=== PATIENT | female | born 1995 | race American Indian/Alaskan Native ===

== ENCOUNTER 2016-12-12 18:30 | Emergency (ER) | payer SELFPAY ==
[2016-12-13] MEDS ORDERED: BICILLIN L-A IM ONE ×2 (03:14→03:28)
[2016-12-13] MEDS ORDERED: TORADOL IM ONE (03:14)
--- NOTE | 2016-12-13 03:17 | Emergency Department Report ---
ED ENT HPI - General Chief complaint: Earache Stated complaint: EARACHE/SORE THROAT/NO EATING Time Seen by Provider: 12/13/16 03:04 Source: patient Mode of arrival: Ambulatory Limitations: No Limitations - History of Present Illness Initial comments: 21-year-old female past medical history none presents with complaint of 4 days of sore throat. Patient is awake alert and oriented 3 does not appear to be in acute distress no audible wheezing or stridor no trismus noted drooling. Patient states she is able to tolerate oral fluids without significant difficulty but has trouble swallowing solids due to throat pain. Patient states she recently had sick contact at home. Patient states she has body aches denies any cough denies any chest pain no palpitations no abdominal pain mild nausea no vomiting. complaint: sore throat Onset/Timin -: days(s) Location: throat Severity: moderate Severity scale (0 -10): 6 Quality: burning Consistency: constant Improves with: none Worsens with: swallowing - Related Data Previous Rx's Medication Instructions Recorded Last Taken Type Benzocaine/Menthol [Cepacol Sore 1 each MM Q4H PRN #18 lozenge 12/13/16 Unknown Rx Throat Lozenge] Ibuprofen [Motrin] 600 mg PO Q8H PRN #30 tablet 12/13/16 Unknown Rx Allergies Allergy/AdvReac Type Severity Reaction Status Date / Time No Known Allergies Allergy Verified 12/12/16 19:40 ED Dental HPI - General Chief complaint: Earache Stated complaint: EARACHE/SORE THROAT/NO EATING Time Seen by Provider: 12/13/16 03:04 Source: patient Mode of arrival: Ambulatory Limitations: No Limitations - Related Data Previous Rx's Medication Instructions Recorded Last Taken Type Benzocaine/Menthol [Cepacol Sore 1 each MM Q4H PRN #18 lozenge 12/13/16 Unknown Rx Throat Lozenge] Ibuprofen [Motrin] 600 mg PO Q8H PRN #30 tablet 12/13/16 Unknown Rx Allergies Allergy/AdvReac Type Severity Reaction Status Date / Time No Known Allergies Allergy Verified 12/12/16 19:40 ED Review of Systems ROS: Stated complaint: EARACHE/SORE THROAT/NO EATING Other details as noted in HPI Constitutional: fever, malaise. denies: chills Eyes: denies: eye pain, eye discharge, vision change ENT: throat pain. denies: ear pain Respiratory: denies: cough, shortness of breath, wheezing Cardiovascular: denies: chest pain, palpitations Endocrine: no symptoms reported Gastrointestinal: denies: abdominal pain, nausea, diarrhea Genitourinary: denies: urgency, dysuria, discharge Musculoskeletal: denies: back pain, joint swelling, arthralgia Skin: denies: rash, lesions Neurological: denies: headache, weakness, paresthesias Psychiatric: denies: anxiety, depression Hematological/Lymphatic: denies: easy bleeding, easy bruising ED Past Medical Hx - Past Medical History Previous Medical History?: Yes Additional medical history: Pre-Eclampsia - Surgical History Past Surgical History?: No - Social History Smoking Status: Never Smoker Substance Use Type: None - Medications Home Medications: Home Medications Medication Instructions Recorded Confirmed Last Taken Type Benzocaine/Menthol [Cepacol Sore 1 each MM Q4H PRN #18 lozenge 12/13/16 Unknown Rx Throat Lozenge] Ibuprofen [Motrin] 600 mg PO Q8H PRN #30 tablet 12/13/16 Unknown Rx ED Physical Exam - General Limitations: No Limitations General appearance: alert, in no apparent distress - Head Head exam: Present: atraumatic, normocephalic - Eye Eye exam: Present: normal appearance, PERRL, EOMI - ENT ENT exam: Present: mucous membranes moist - Expanded ENT Exam Expanded Ear exam: Present: normal external inspection Teeth exam: Present: dental caries Throat exam: Positive: tonsillar erythema, tonsillar exudate - Neck Neck exam: Present: normal inspection, full ROM - Expanded Neck Exam Expanded Neck exam: Present: other (anterior cervical adenopathy) - Respiratory Respiratory exam: Present: normal lung sounds bilaterally. Absent: respiratory distress - Cardiovascular Cardiovascular Exam: Present: regular rate, normal rhythm. Absent: systolic murmur, diastolic murmur, rubs, gallop - GI/Abdominal GI/Abdominal exam: Present: soft, normal bowel sounds - Extremities Exam Extremities exam: Present: normal inspection - Back Exam Back exam: Present: normal inspection - Neurological Exam Neurological exam: Present: alert, oriented X3 - Psychiatric Psychiatric exam: Present: normal affect, normal mood - Skin Skin exam: Present: warm, dry, intact, normal color. Absent: rash ED Course Vital Signs 12/12/16 12/13/16 19:05 00:27 Temperature 99.0 F Pulse Rate 99 H 102 H Respiratory 18 18 Rate Blood Pressure 124/82 Blood Pressure 122/79 [Right] O2 Sat by Pulse 97 97 Oximetry ED Medical Decision Making - Medical Decision Making A/P: Pharyngitis 1-treat empirically for strep as patient recently had positive strep contact 2-Motrin 600 when necessary, throat lozenges 3-follow up with primary care doctor 4- oropharynx is open and patent, visible tonsillar erythema and exudates, no trismus noted drooling able to tolerate by mouth fluids without significant difficulty. I advised patient to return to the ED if she has difficulty swallowing fluids for persistent nausea and vomiting any worsening fever or chills or any shortness of breath difficulty breathing Critical care attestation.: If time is entered above; I have spent that time in minutes in the direct care of this critically ill patient, excluding procedure time. ED Disposition Clinical Impression: Pharyngitis Qualifiers: Pharyngitis/tonsillitis etiology: unspecified etiology Qualified Code(s): J02.9 - Acute pharyngitis, unspecified Disposition: DISCHARGED TO HOME OR SELFCARE Is pt being admited?: No Does the pt Need Aspirin: No Condition: Stable Instructions: Pharyngitis (ED), Strep Throat (ED) Prescriptions: Benzocaine/Menthol [Cepacol Sore Throat Lozenge] 1 each MM Q4H PRN #18 lozenge PRN Reason: Sore Throat Ibuprofen [Motrin] 600 mg PO Q8H PRN #30 tablet PRN Reason: Pain Referrals: NAN MORRISON MD [Staff Physician] - 3-5 Days [facility]– [place] [Outside] - 3-5 Days Forms: Work/School Release Form(ED) Time of Disposition: 03:18
[2016-12-13] MEDS ORDERED: DECADRON IM ONE (03:21)
[2016-12-13 03:49] VITALS: BP 122/80
== END 2016-12-13 04:07 | disposition home or self-care (01) ==
LOC: ED 18:30
DX: J02.9 Acute pharyngitis, unspecified (principal)
CPT/HCPCS: 87116; 87430; 96372; 99282; J0561; J1100; J1885